=== PATIENT | female | born 1935 | race Caucasian/White ===

== ENCOUNTER 2017-01-22 19:40 | Emergency (ER) | payer MEDICARE, BC ==
[2017-01-22] MEDS ORDERED: Ketorolac 60 MG/2 ML SDV IM ONE (20:52)
--- NOTE | 2017-01-22 21:04 | EDM.PDOC ---
[id number]: SCIATICA NERVE Time Seen by Provider: 01/22/17 20:45 Source of Information: Reports: Patient, Family History Limitations: Reports: No Limitations - History of Present Illness INITIAL COMMENTS - FREE TEXT/NARRATIVE: 81-year-old female who just had knee surgery on her right knee 3 days ago came [place] today [place] a [place]ground to be on [place]. She has developed increased lower extremity pain and swelling, sat on a toilet 2 hours ago and was unable to get up. Her last pain pill was taken this morning. She was brought in by her sister because she is so uncomfortable. No fevers or chills. Onset: Unknown/Unsure Location: Reports: Lower Extremity, Left, Lower Extremity, Right Quality: Reports: Ache, Stabbing Severity: Moderate Associated Symptoms: Reports: Weakness (both lower extremities), Other (Edema both lower extremities) Right Upper Leg Pain Score (Numeric/FACES): 10 - Related Data Allergies Allergy/AdvReac Type Severity Reaction Status Date / Time acetaminophen [From Percocet] AdvReac Vomiting Verified 01/22/17 20:20 oxycodone [From Percocet] AdvReac Vomiting Verified 01/22/17 20:20 Home Meds: Home Meds B/P Pill 01/22/17 [History] Bumetanide [Bumex] 2 mg PO DAILY 01/22/17 [History] Diabetic Pill 01/22/17 [History] Hydrocodone/Acetaminophen [Vicodin 5-300 mg Tablet] 1 each PO 01/22/17 [History] Past Medical History HEENT History: Reports: Cataract Cardiovascular History: Reports: Hypertension Endocrine/Metabolic History: Reports: Diabetes, Type II - Past Surgical History HEENT Surgical History: Reports: Cataract Surgery GI Surgical History: Reports: Colon Female Surgical History: Reports: Hysterectomy Musculoskeletal Surgical History: Reports: Arthroscopic Knee, Knee Replacement Other Musculoskeletal Surgeries/Procedures:: Thursday right knee Social & Family History - Tobacco Use Smoking Status *Q: Never Smoker - Caffeine Use Caffeine Use: Reports: None - Recreational Drug Use Recreational Drug Use: Yes ED ROS GENERAL - Review of Systems Review Of Systems: See Below Constitutional: Denies: Fever, Chills Respiratory: Denies: Shortness of Breath Cardiovascular: Denies: Chest Pain GI/Abdominal: Denies: Abdominal Pain, Nausea, Vomiting : Reports: No Symptoms Musculoskeletal: Reports: Leg Pain, Other (Leg swelling and edema) Skin: Reports: No Symptoms Neurological: Denies: Confusion, Dizziness Psychiatric: Reports: No Symptoms ED EXAM, GENERAL - Physical Exam Exam: See Below Exam Limited By: No Limitations General Appearance: Alert, No Apparent Distress Respiratory/Chest: No Respiratory Distress, Lungs Clear Cardiovascular: Regular Rate, Rhythm Extremities: Other (She has dressings around her right knee, and significant pitting edema both lower extremities. She has increased pain with extension of the right leg) Neurological: Alert, Oriented Skin Exam: Warm, Dry, Other (Surgical incisions look excellent) Course - Vital Signs Last Recorded V/S: Last Vital Signs Temp 98.9 F 01/22/17 20:17 Pulse 94 01/22/17 20:17 Resp 20 01/22/17 20:17 BP 161/72 H 01/22/17 20:17 Pulse Ox 94 L 01/22/17 20:17 - Orders/Labs/Meds Orders: Active Orders 24 hr Category Date Time Status VL Duplex Lwr Ext Veins Comp [US] Stat Exams 01/22/17 Taken Meds: Medications Discontinued Medications Generic Name Dose Route Start Last Admin Trade Name Mariano PRN Reason Stop Dose Admin Ketorolac Tromethamine 60 mg 01/22/17 20:52 01/22/17 20:58 Toradol IM 01/22/17 20:53 60 mg ONETIME ONE Administration - Re-Assessments/Exams Free Text/Narrative Re-Assessment/Exam: 01/22/17 22:33 Patient was given 60 mg of Toradol IM and encouraged to take a dose of her regular pain medication. I did have ultrasound come in and rule out DVTs in both lower extremities. By the time the ultrasounds were done she was feeling better and wanted to try to go back to the cabin. She'll return if she worsens. Departure - Departure Time of Disposition: 22:31 Disposition: Home, Self-Care 01 Condition: Fair Clinical Impression: Lower extremity pain, bilateral - Discharge Information Instructions: Back Pain, Adult, [id number] Referrals: PCP,None [Primary Care Provider] - Forms: ED Department Discharge Care Plan Goals: Take pain medications as prescribed on a regular basis for the next couple of days, and ibuprofen or naproxen and increase activity as tolerated. Return if worsening or concerns. - My Orders Last 24 Hours: My Active Orders 01/22/17 VL Duplex Lwr Ext Veins Comp [US] Stat - Assessment/Plan Last 24 Hours: My Active Orders 01/22/17 VL Duplex Lwr Ext Veins Comp [US] Stat
[2017-01-22 22:31] VITALS: BP 127/71
--- NOTE | 2017-01-23 08:32 | US ---
VL Duplex Lwr Ext Veins Comp INDICATION: POST OP SWELLING, PAIN TECHNIQUE: The deep venous system of both legs imaged, including the common femoral, deep femoral, s uperficial femoral, popliteal, and where visualized, calf veins. Imaging included duplex, compress ion, and augmentation. COMPARISON: None FINDINGS: There is no evidence of deep venous thrombosis. Other incidental findings: None. IMPRESSION: No evidence of deep venous thrombosis.
== END 2017-01-22 22:31 | disposition home or self-care (01) ==
LOC: JP.ED 19:40
DX: M79.662 Pain in left lower leg (principal); M79.661 Pain in right lower leg; I10 Essential (primary) hypertension; E11.9 Type 2 diabetes mellitus without complications; Z88.5 Allergy status to narcotic agent; Z79.899 Other long term (current) drug therapy; Z98.49 Cataract extraction status, unspecified eye; Z90.710 Acquired absence of both cervix and uterus; Z96.659 Presence of unspecified artificial knee joint; Z98.890 Other specified postprocedural states
CPT/HCPCS: 93970; 96372; 99284; J1885; 99283